=== PATIENT | female | born 1975 | race Caucasian/White ===

== ENCOUNTER 2018-10-06 00:06 | Emergency (ER) | payer OTHER ==
[2018-10-06] MEDS ORDERED: Adenosine 6 MG/2 ML VIAL ONE (00:13)
[2018-10-06] MEDS ORDERED: Lorazepam 2 MG/ML VIAL ONE (00:15)
[2018-10-06] MEDS ORDERED: Nitroglycerin 2% Ointment 1 INCH/1 GM Packet ONE (00:17)
[2018-10-06] MEDS ORDERED: Metoprolol Tartrate 5 MG/5 ML VIAL ONE ×2 (00:20→01:37)
[2018-10-06 00:40] LABS: #Basophils 0.2 thou/uL (0.0-0.2); #Eosinphils 0.2 thou/uL (0.0-0.7); #Monocytes 0.9 thou/uL (0.11-0.59); #Neutrophils 6.4 thou/uL (1.40-6.50); %Basophils 1.5 % (0.0-1.0); %Eosinophils 2.2 % (0.0-10.0); %Lymphocytes 28.2 % (21.0-51.0); %Monocytes 8.7 % (0.0-10.0); %Neutrophils 59.3 % (42.0-75.0); Hemoglobin 12.4 g/dL (12.0-16.0); INR-International Normal Ratio 0.9; Mean Corpuscular HGB CONC 31.2 g/dL (32.0-36.0); Mean Corpuscular Volume 80.2 fL (78.0-98.0); Mean Platelet Volume 9.6 fL (7.4-10.4); PTT 29.8 SEC (22.9-36.1); Platelet Count 223 thou/uL (130-400); Prothrombin Time 12.3 SEC (12.0-14.7); RBC Distribution Width 16.5 % (11.5-14.5); Red Blood Cell (RBC) Count 4.96 mill/uL (4.20-5.40); White Blood Cell (WBC) Count 10.8 thou/uL (4.8-10.8)
[2018-10-06] MEDS ORDERED: Nitroglycerin 0.4 MG TAB (25 Tab Bottle) ONE (00:43)
[2018-10-06 00:49] LABS: ALT (SGPT) 13 U/L (8-55); AST (SGOT) 17 U/L (5-34); Albumin 4.6 g/dL (3.5-5.0); Alkaline Phosphatase 76 U/L (40-150); Anion Gap 16 mmol/L (10-20); BUN (Urea Nitrogen) 14 mg/dL (7.0-18.7); Bilirubin, Total 0.6 mg/dL (0.2-1.2); CK (CPK) 72 U/L (29-168); Calc. Creatinine Clearance 0 mL/min (70-130); Calcium 9.7 mg/dL (7.8-10.44); Carbon Dioxide 23 mmol/L (22-29); Chloride 104 mmol/L (98-107); Estimated GFR-MDRD 61; Globulin 2.8 g/dL (2.4-3.5); Glucose 138 mg/dL (70-105); Protein, Total 7.4 g/dL (6.0-8.3); Sodium 140 mmol/L (136-145)
[2018-10-06 00:54] LABS: Potassium 2.6 mmol/L (3.5-5.1)
[2018-10-06 00:55] LABS: CKMB 0.9 ng/mL (0-6.6)
[2018-10-06] MEDS ORDERED: Sodium Chloride 0.9% 1,000 ML ONE (00:58)
[2018-10-06] MEDS ORDERED: Potassium Chloride 20 MEQ TAB ONE (00:58)
[2018-10-06] MEDS ORDERED: NS 0.9% w/ 20 MEQ KCL 1,000 ML ONE (02:02)
--- NOTE | 2018-10-06 08:24 | RAD ---
RADIOGRAPH CHEST 2 VIEWS: HISTORY: A 43-year-old female with palpitations. FINDINGS: There is no air space density, pulmonary edema, pleural effusion, or pneumothorax. IMPRESSION: No acute pulmonary findings. omar [] POS: [facility]
== END 2018-10-06 02:35 | disposition short-term general hospital (02) ==
LOC: MADERS 00:06
DX: I48.91 Unspecified atrial fibrillation (principal); E87.6 Hypokalemia; E78.5 Hyperlipidemia, unspecified; F41.9 Anxiety disorder, unspecified; Z79.899 Other long term (current) drug therapy
CPT/HCPCS: 36415; 71046; 80053; 82550; 82553; 84484; 85025; 85610; 85730; 93005; 96361; 96365; 96375; 96376; J0153; J2060; J7050

== ENCOUNTER 2025-07-07 07:01 | Outpatient (CLI) | payer BC ==
[2025-07-07 08:08] LABS: ALT (SGPT) 23 U/L (Less than 34); AST (SGOT) 27 U/L (11-34); Albumin 4.3 g/dL (3.1-4.5); Alkaline Phosphatase 62 U/L (40-110); Anion Gap 13 mmol/L (10-20); BUN (Urea Nitrogen) 13 mg/dL (7.0-18.7); Bilirubin, Total 0.8 mg/dL (0.3-1.2); Calc. Creatinine Clearance 0 mL/min (70-130); Calcium 9.7 mg/dL (7.8-10.44); Carbon Dioxide 24 mmol/L (22-29); Cardiac Risk 2.5 (Less than 4.5); Chloride 108 mmol/L (98-107); Cholesterol 138 mg/dl (< 200 Desired); Globulin 2.6 g/dL (2.4-3.5); Glucose 99 mg/dL (70-105); HDL Cholesterol 55 mg/dL (>60 Neg Risk); LDL Cholesterol, Calculated 72 mg/dL; Potassium 4.1 mmol/L (3.5-5.1); Sodium 141 mmol/L (136-145); Triglycerides 54 mg/dL (Less than 150)
[2025-07-07 08:17] LABS: #Basophils 0.1 thou/uL (0.0-0.2); #Eosinophils 0.1 thou/uL (0.0-0.7); #Lymphocytes 1.1 thou/uL (1.20-3.40); #Monocytes 0.3 thou/uL (0.11-0.59); #Neutrophils 2.8 thou/uL (1.40-6.50); %Basophils 2.0 % (0.0-1.0); %Eosinophils 3.0 % (0.0-10.0); %Lymphocytes 25.3 % (21.0-51.0); %Monocytes 6.1 % (0.0-10.0); %Neutrophils 63.6 % (42.0-75.0); Hematocrit 45.4 % (36.0-47.0); Hemoglobin 14.4 g/dL (12.0-16.0); Mean Corpuscular Hemoglobin 30.9 pg (27.0-31.0); Mean Corpuscular Volume 97.1 fl (78.0-98.0); Platelet Count 199 10x3/uL (130-400); Red Blood Cell (RBC) Count 4.68 mill/uL (4.20-5.40); White Blood Cell (WBC) Count 4.4 10x3/uL (4.8-10.8)
[2025-07-07 13:50] LABS: Albumin (w/Testosterone Panel) 4.2 g/dL
[2025-07-07 13:53] LABS: Iron 78 ug/dL (50-170); Iron Binding Capacity, Total 350 mcg/dL (265-497)
[2025-07-07 14:14] LABS: Testosterone, Free 1.9 pg/mL (1.1-9.2)
[2025-07-07 14:19] LABS: Ferritin 38.93 ng/mL (10-291); Free T4 (Free Thyroxine) 1.09 ng/dL (0.70-1.48); Vitamin B12 316.0 pg/mL (211-911)
[2025-07-07 15:11] LABS: Vitamin D, 25 Hydroxy 22.4 ng/ml (> 30.0)
[2025-07-07 15:36] LABS: Follicle Stimulating Hormone 6.13 mIU/mL (See Ranges)
[2025-07-08 12:52] LABS: Thyroid Peroxidase IgG Ab 90.0 IU/mL (<25 Normal)
[2025-07-09 16:39] LABS: Estradiol, Serum 48.0 pg/mL
== END 2025-07-07 07:02 | disposition home or self-care (01) ==
LOC: MADLAB 07:01
PROVIDERS: ATTEND Family Medicine
DX: N95.1 Menopausal and female climacteric states (principal); E03.9 Hypothyroidism, unspecified; R53.83 Other fatigue; R79.9 Abnormal finding of blood chemistry, unspecified; R73.03 Prediabetes; Z79.899 Other long term (current) drug therapy
CPT/HCPCS: 36415; 80053; 80061; 82306; 82607; 82670; 82672; 82728; 83001; 83002; 83036; 83525; 83540; 83550; 84144; 84270; 84403; 84439; 84443; 84481; 85025; 86376